=== PATIENT | male | born 1970 | race Caucasian/White ===

== ENCOUNTER 2017-10-11 18:11 | Emergency (ER) | payer OTHER ==
[~2017-10-11] VITALS: Ht 160 cm; Wt 68.0 kg
== END 2017-10-11 20:33 | disposition home or self-care (01) ==
LOC: ER 18:11
DX: B34.9 Viral infection, unspecified (principal)

== ENCOUNTER 2018-03-05 20:06 | Emergency (ER) | payer OTHER ==
[~2018-03-05] VITALS: Ht 160 cm; Wt 70.3 kg
[2018-03-06] MEDS ORDERED: ORPHENADRINE C100 MG PO (01:47)
[2018-03-06] MEDS ORDERED: KETO10TA2 PO (01:47)
== END 2018-03-06 01:46 | disposition home or self-care (01) ==
LOC: ER 20:06
DX: R07.89 Other chest pain (principal); R20.0 Anesthesia of skin; F41.8 Other specified anxiety disorders

== ENCOUNTER 2023-04-20 20:35 | Emergency (ER) | payer OTHER ==
[~2023-04-20] VITALS: Ht 160 cm; Wt 72.6 kg
[~2023-04-20 20:35] MED LIST: KETO10TA2 PO; ORPHENADRINE C100 MG PO
== END 2023-04-21 00:42 | disposition home or self-care (01) ==
LOC: ER 20:35
DX: J04.0 Acute laryngitis (principal); R49.0 Dysphonia; Z20.822 Contact with and (suspected) exposure to COVID-19

== ENCOUNTER 2024-06-06 20:11 | Emergency (ER) | payer OTHER ==
[~2024-06-06] VITALS: Ht 160 cm; Wt 73.9 kg
[2024-06-06 21:54] LABS: HEMOGLOBIN 14.2 g/dL (13-16.00); MEAN CELL VOLUME 88.1 fL (80.0-100.00); MEAN CORPUSCULAR HEMOGLOBIN 30.5 pg (27.00-32.0); MEAN CORPUSCULAR HGB CONC 34.6 g/dl (32.0-36.0); PLATELET COUNT 373 K/uL (150-450); RED BLOOD COUNT 4.65 M/uL (4.00-6.00); RED CELL DISTRIBUTION WIDTH 13.1 % (11.5-14.5)
== END 2024-06-06 22:41 | disposition home or self-care (01) ==
LOC: ER 20:14
PROVIDERS: Emergency Medicine
DX: J06.9 Acute upper respiratory infection, unspecified (principal)